=== PATIENT | female | born 1970 | race Caucasian/White ===

== ENCOUNTER 2016-12-19 10:32 | Emergency (ER) | payer OTHER ==
[~2016-12-19] VITALS: Ht 167.6 cm; Wt 74.8 kg
--- NOTE | ~2016-12-19 | CR63 ---
[facility] A Service of [facility] & [facility] / [facility] RADIOLOGY TEXT RESULTS PATIENT: REMINGTON GRAMAJO LOCATION: SED : 70 UNIT #: [id number] AGE: [address]: DARIN BOO SEX: F ORDER DR: [id number] [place] [id number] E MR#: [id number] Acc #: [id number] NAME: REMINGTON GRAMAJO. : 1970 SEX: F STUDY DATE/TIME: 12/19/2016 11:16 UNIT: SED ROOM: STUDY DESCRIPTION: CR Chest 2 View Attending Physician: Neela Lockhart Ordering Physician: Neela Lockhart Primary Care Physician: Primary Care Physician No MEDICAL IMAGING REPORT This report is preliminary unless electronic signature is present. EXAM Two-view chest INDICATION Cough and shortness of air, 5-day duration. FINDINGS PA and lateral views of the chest without comparison. Heart and mediastinal contour is normal. Lungs are clear. No pleural effusion. IMPRESSION Negative chest radiograph. Dictated by... Mikel Archuleta M.D. THIS IS AN ELECTRONICALLY VERIFIED REPORT Mikel Archuleta M.D. at 12/20/2016 11:49 AM ESTEBAN/shanice TD: 12/20/2016 11:16 JOB #: [id number] MEDICAL IMAGING REPORT Page 1 of 1
[~2016-12-19 10:32] MED LIST: ALPRAZOLAM PO; BENADRYL; DARVOCET-N 1001 TAB PO; FAMOTIDINE; LEXAPRO PO; PREDNISONE; VOLTAREN75 MG PO
== END 2016-12-19 12:20 | disposition short-term general hospital (02) ==
LOC: SED 10:32
DX: J20.9 Acute bronchitis, unspecified (principal); J06.9 Acute upper respiratory infection, unspecified; E03.9 Hypothyroidism, unspecified; Z87.891 Personal history of nicotine dependence; Z88.5 Allergy status to narcotic agent
CPT/HCPCS: 71020; 94640; 94664; 99285

== ENCOUNTER 2016-12-27 09:58 | Emergency (ER) | payer OTHER ==
--- NOTE | ~2016-12-27 | CR63 ---
[facility] A Service of [facility] RADIOLOGY TEXT RESULTS PATIENT: REMINGTON GRAMAJO LOCATION: SED : 70 UNIT #: [id number] AGE: [address]: Michael Haddad MD SEX: F ORDER DR: [id number] [place] [id number] E MR#: [id number] Acc #: [id number] NAME: REMINGTON GRAMAJO : 1970 SEX: F STUDY DATE/TIME: 12/27/2016 10:45 UNIT: SED ROOM: STUDY DESCRIPTION: CR Chest 2 View Attending Physician: Michael Haddad M.D. Ordering Physician: Michael Haddad M.D. Primary Care Physician: Primary Care Physician No MEDICAL IMAGING REPORT This report is preliminary unless electronic signature is present. EXAM PA and lateral chest 2 views 12/27/2016 CLINICAL HISTORY Cough for 2 weeks, shortness of air. COMPARISON Chest radiograph 12/19/2016 FINDINGS PA and lateral examination of the chest upright shows a good expansion of the parenchyma with a normal distribution of the pulmonary vascularity. There is no indication of congestion, effusion, infiltrate, tumor, or nodular density. The pleural reflections and diaphragmatic contours are normal. The cardiac silhouette and mediastinal anatomy is within normal limits. IMPRESSION Normal chest. Dictated by... Bill Jin M.D. THIS IS AN ELECTRONICALLY VERIFIED REPORT Bill Jin M.D. at 12/31/2016 7:33 AM TEV/df TD: 12/27/2016 15:05 [facility] A Service of [facility] RADIOLOGY TEXT RESULTS PATIENT: REMINGTON GRAMAJO LOCATION: SED : [birth year] UNIT #: [id number] AGE: [address]: Michael Haddad MD SEX: F ORDER DR: DONNA #: [id number] MEDICAL IMAGING REPORT Page 1 of 1
[2016-12-27] MEDS ORDERED: SYNTHROID (10:06)
[2016-12-27] MEDS ORDERED: AUGMENTIN (10:06)
== END 2016-12-27 11:25 | disposition home or self-care (01) ==
LOC: SED 09:58
DX: J20.9 Acute bronchitis, unspecified (principal); F41.9 Anxiety disorder, unspecified; E03.9 Hypothyroidism, unspecified; F17.200 Nicotine dependence, unspecified, uncomplicated; Z88.5 Allergy status to narcotic agent
CPT/HCPCS: 71020; 99284

== ENCOUNTER 2016-12-29 08:16 | Emergency (ER) | payer OTHER ==
[~2016-12-29] VITALS: Ht 167.6 cm; Wt 74.8 kg
--- NOTE | ~2016-12-29 | CR72 ---
[facility] A Service of [facility] & [facility] RADIOLOGY TEXT RESULTS PATIENT: REMINGTON GRAMAJO LOCATION: [facility] : [birth year] UNIT #: [id number] AGE: [address]: Keerthi Schumacher APRN SEX: F ORDER DR: [id number] [facility] [address] [place], [place] [address] [id number] E MR#: [id number] Acc #: [id number] NAME: REMINGTON GRAMAJO. : 1970 SEX: F STUDY DATE/TIME: 12/29/2016 9:06 UNIT: [facility] ROOM: STUDY DESCRIPTION: CR Chest Single View Portable Attending Physician: Keerthi Schumacher A.P.R.N. Ordering Physician: Ed Doctor [id number] [facility] Primary Care Physician: Primary Care Physician No MEDICAL IMAGING REPORT This report is preliminary unless electronic signature is present EXAM Portable chest INDICATION Shortness of breath for 2 weeks. COMPARISON 12/27/2016. FINDINGS No airspace consolidation. Heart size stable. Decreased inspiratory volume. Visualized osseous structures are unremarkable. IMPRESSION Decreased inspiratory volume; otherwise, no significant change. Dictated by... Jesús Rowe M.D. THIS IS AN ELECTRONICALLY VERIFIED REPORT Jesús Rowe M.D. at 12/30/2016 2:47 PM ANTHONY/héctor TD: 12/29/2016 11:19 JOB #: [id number] MEDICAL IMAGING REPORT Page 1 of 1 COPY
--- NOTE | ~2016-12-29 | EKG ---
PATIENT: REMINGTON GRAMAJO UNIT #: [id number] Ventricular Rate: 113 BPM Atrial Rate: 113 BPM P-R Interval: 182 ms QRS Duration: 84 ms Q-T Interval: 334 ms QTC Calculation(Bezet): 458 ms P [place]: 77 degrees Calculated R [place]: 133 degrees Calculated T [place]: 36 degrees Diagnosis Line: Sinus tachycardia Diagnosis Line: Right ventricular hypertrophy Diagnosis Line: Abnormal ECG Diagnosis Line: No previous ECGs available Diagnosis Line: Confirmed by ANIYA PARTIDA MD ([id number]) on Diagnosis Line: 12/30/2016 9:44:07 AM INTERPRETING MD: JAQUAN MILLER
[~2016-12-29 08:16] MED LIST changes: +AUGMENTIN; +SYNTHROID
[2016-12-29 09:15] LABS: BASOPHIL# 0.1 X10e3 (0-0.3); BASOPHIL% 0.4 % (0-2.5); DIFF IND NO; EOSINOPHIL# 0.4 X10e3 (0-0.7); EOSINOPHIL% 2.6 % (0.0-7.0); HEMATOCRIT 45.4 % (35.0-45.0); HEMOGLOBIN 15.6 gm/dL (12.0-16.0); LYMPHOCYTE# 1.4 X10e3 (1.0-3.5); LYMPHOCYTE% 9.5 % (17.0-45.0); MEAN CELL VOLUME 91.1 FL (83-96); MEAN CORPUSCULAR HEMOGLOBIN 31.3 PG (28-34); MEAN CORPUSCULAR HGB CONC 34.3 g/dL (30-36); MONOCYTE# 0.5 X10e3 (0-1.0); MONOCYTE% 3.5 % (3.0-12.0); NEUTROPHIL# 12.3 X10e3 (1.5-7.1); PLATELET COUNT 420 X10e3 (140-420); RED BLOOD COUNT 4.98 X10e (3.90-5.30); RED CELL DISTRIBUTION WIDTH 13.4 % (11.0-15.5); WHITE BLOOD COUNT 14.7 X10e3 (4.0-10.5)
[2016-12-29 09:35] LABS: ALBUMIN SERUM 4.4 g/dL (3.5-5.0); BILIRUBIN, DIRECT 0.1 mg/dL (0.0-0.2); BILIRUBIN,INDIRECT 0.3 mg/dL (0.0-0.9); BILIRUBIN,TOTAL 0.4 mg/dL (0.2-2.0); BUN/CREATININE RATIO 12.5; CALCIUM SERUM 9.2 mg/dL (8.4-10.2); CREATININE SERUM 0.8 mg/dL (0.6-1.4); GLOM FILT RATE Estimated 88.5 mL/min (>60); POTASSIUM 3.7 mmol/L (3.5-5.1); PROTEIN TOTAL SERUM 7.8 g/dL (6.0-8.3)
== END 2016-12-29 11:03 | disposition home or self-care (01) ==
LOC: CED 08:16
PROVIDERS: Nurse Practitioner
DX: J44.1 Chronic obstructive pulmonary disease with (acute) exacerbation (principal); J20.9 Acute bronchitis, unspecified; J44.0 Chronic obstructive pulmonary disease with (acute) lower respiratory infection; F41.9 Anxiety disorder, unspecified; F17.210 Nicotine dependence, cigarettes, uncomplicated; Z88.8 Allergy status to other drugs, medicaments and biological substances
CPT/HCPCS: 36415; 71010; 80048; 80076; 85025; 85379; 93005; 96361; 96374; 99285; J2930